=== PATIENT | female | born 1980 | race Caucasian/White ===

== ENCOUNTER 2017-12-10 13:32 | Emergency (ER) | payer MEDICAID ==
[~2017-12-10] VITALS: Ht 167.6 cm; Wt 59.0 kg
[~2017-12-10 13:32] MED LIST: CRUTCH3 USE; CYCL10 PO; Colace100 MG PO; DULO30 PO; DULO60 PO; HYDACE10B PO; HYDACE5 PO; HYDACE5325 PO; IBUP800 PO; LORA1 PO; MELO7.5 PO; NAPR500 PO; OXCA150 PO; OXCA300 PO; PROM25 PO; Percocet 5-3251 EACH PO; TRAM50 PO; TRAZ50 PO; Zofran Odt4 MG SL
[2017-12-10] MEDS ORDERED: GABA300T24 (13:40)
[2017-12-10] MEDS ORDERED: HYDR1TAB94 PO (13:40)
[2017-12-10] MEDS ORDERED: MELO7.5 PO (13:40)
[2017-12-10] MEDS ORDERED: Bactrim Ds Tab1 EACH PO (13:40)
[2017-12-10] MEDS ORDERED: NAPR550 PO (14:29)
[2017-12-10] MEDS ORDERED: Cleocin HCl300 MG PO (14:29)
[2017-12-10] MEDS ORDERED: Norco 5-325 Ta1 EACH PO (14:29)
== END 2017-12-10 14:53 | disposition home or self-care (01) ==
LOC: ER 13:32
DX: L03.111 Cellulitis of right axilla (principal); F41.9 Anxiety disorder, unspecified; F17.200 Nicotine dependence, unspecified, uncomplicated; Z88.8 Allergy status to other drugs, medicaments and biological substances; Z79.899 Other long term (current) drug therapy
CPT/HCPCS: 36415; 96365; 96375; 99283; J1885; J2405

== ENCOUNTER → 2017-12-20 | Outpatient (CLI) | payer MEDICAID ==
[~2017-12-20] MED LIST changes: +Bactrim Ds Tab1 EACH PO; +Cleocin HCl300 MG PO; +GABA300T24; +HYDR1TAB94 PO; +NAPR550 PO; +Norco 5-325 Ta1 EACH PO
== END | disposition home or self-care (01) ==
LOC: LAB EV 14:24 → LAB SHORT 14:24
DX: L02.411 Cutaneous abscess of right axilla (principal)
CPT/HCPCS: 87070; 87205

== ENCOUNTER 2018-11-03 20:57 | Emergency (ER) | payer OTHER ==
[~2018-11-03] VITALS: Ht 165.1 cm; Wt 61.2 kg
[~2018-11-03 20:57] MED LIST changes: -GABA300T24; +GABA300T24 PO
[2018-11-03] MEDS ORDERED: ARIP10 PO (21:06)
[2018-11-03] MEDS ORDERED: ALBU90OI6 INH (21:12)
[2018-11-03] MEDS ORDERED: GABA300 PO (21:12)
[2018-11-03] MEDS ORDERED: CEPH500 PO (21:42)
== END 2018-11-03 22:01 | disposition home or self-care (01) ==
LOC: ER 20:57
DX: S61.216A Laceration without foreign body of right little finger without damage to nail, initial encounter (principal); F41.9 Anxiety disorder, unspecified; M79.7 Fibromyalgia; Z88.8 Allergy status to other drugs, medicaments and biological substances; Z79.899 Other long term (current) drug therapy; F17.210 Nicotine dependence, cigarettes, uncomplicated; W45.8XXA Other foreign body or object entering through skin, initial encounter
CPT/HCPCS: 12001; 99282-25

== ENCOUNTER → 2018-12-02 | Outpatient (CLI) | payer OTHER ==
[~2018-12-02] MED LIST changes: +ALBU90OI6 INH; +ARIP10 PO; +CEPH500 PO; +GABA300 PO
[2018-12-02 10:42] LABS: Hematocrit 37.9 % (33.0-51.0); Hemoglobin 13.6 g/dL (11.5-16.0); Mean Corpuscular HGB 33.2 pg (26.0-34.0); Mean Corpuscular HGB Conc 35.9 g/dL (31.5-36.5); Mean Corpuscular Volume 92 fL (80-100); Mean Platelet Volume 9.3 fL (9.1-12.4); Platelet Count 249 K/mm3 (150-400); RDW Coefficient Variation 12.1 % (11.7-14.2); RDW Standard Deviation 41.1 fL (35.1-46.3)
[2018-12-02 10:46] LABS: BASOPHILS ABSOLUTE AUTO 0.01 K/mm3 (0.00-0.23); BASOPHILS PERCENT AUTO 0 % (0-2); EOSINOPHILS ABSOLUTE AUTO 0.08 K/mm3 (0.00-0.68); EOSINOPHILS PERCENT AUTO 1 % (0-6); IMMATURE GRAN ABSOLUTE AUTO 0.02 K/mm3 (0.00-0.10); IMMATURE GRAN PERCENT AUTO 0 % (0-1); LYMPHOCYTES ABSOLUTE AUTO 0.89 K/mm3 (0.84-5.20); LYMPHOCYTES PERCENT AUTO 16 % (21-46); MONOCYTES ABSOLUTE AUTO 0.34 K/mm3 (0.16-1.47); MONOCYTES PERCENT AUTO 6 % (4-13); NEUTROPHILS ABSOLUTE AUTO 4.22 K/mm3 (1.96-9.15); NEUTROPHILS PERCENT AUTO 76 % (41-73); White Blood Cell Count 5.56 K/mm3 (4.00-11.30)
[2018-12-02 10:54] LABS: Alanine Aminotransfer (ALT/SGP 50 U/L (12-78); Albumin, Blood 4.1 g/dL (3.4-5.0); Albumin/Globulin Ratio 1.2 (0.8-1.8); Alk Phos 78 U/L (40-126); Anion Gap 7 mmol/L (6-16); Aspartate Aminotrans (AST/SGOT 37 U/L (12-37); Bilirubin, Total 0.2 mg/dL (0.1-1.0); Blood Urea Nitrogen 9 mg/dL (8-24); Bun/Creatinine Ratio 16.7 (12.0-20.0); CO2, Blood 29 mmol/L (21-32); Calcium, Blood 8.9 mg/dL (8.5-10.1); Chloride, Blood 91 mmol/L (98-108); Creatinine, Blood 0.54 mg/dL (0.40-1.00); Globulin, Blood 3.3 g/dL (2.2-4.0); Glomerular Filtration Rate >60 (60-); Glucose, Blood 100 mg/dL (70-99); Potassium, Blood 4.2 mmol/L (3.5-5.5); Sodium, Blood 127 mmol/L (136-145); Total Protein, Blood 7.4 g/dL (6.4-8.2)
== END | disposition home or self-care (01) ==
LOC: LAB EV 10:38 → LAB SHORT 10:38
PROVIDERS: General Practice
DX: T14.90XA Injury, unspecified, initial encounter (principal)
CPT/HCPCS: 80053; 85025

== ENCOUNTER 2020-07-29 10:02 | Emergency (ER) | payer OTHER ==
[~2020-07-29] VITALS: Ht 165.1 cm; Wt 84.8 kg
[~2020-07-29 10:02] MED LIST changes: +OXYC5 PO; +Prednisone20 MG PO
[2020-07-29] MEDS ORDERED: Doxycycline Mo100 M1 PO (10:20)
[2020-07-29] MEDS ORDERED: HYDR1TAB94 PO (11:09)
== END 2020-07-29 11:33 | disposition home or self-care (01) ==
LOC: ER 10:02
DX: N76.4 Abscess of vulva (principal); F17.210 Nicotine dependence, cigarettes, uncomplicated; Z88.8 Allergy status to other drugs, medicaments and biological substances; Z79.899 Other long term (current) drug therapy
CPT/HCPCS: 56405; 99283-25